=== PATIENT | male | born 1980 | race Caucasian/White ===

== ENCOUNTER 2023-09-24 02:18 | Emergency (ER) | payer BC, SELFPAY ==
[2023-09-24 02:20] VITALS: BP 142/90
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
[2023-09-24] MEDS: KEFLEX 500 MG PO (04:00)
[2023-09-24] MEDS: ADACEL 0.5 ML IM (04:04)
== END 2023-09-24 04:27 | disposition home or self-care (01) ==
LOC: EMR 02:18
PROVIDERS: EMERGENCY PHYSICIAN Student in an Organized Health Care Education/Training Program
DX: T24.001A Burn of unspecified degree of unspecified site of right lower limb, except ankle and foot, initial encounter (principal); S81.831A Puncture wound without foreign body, right lower leg, initial encounter; W39.XXXA Discharge of firework, initial encounter; F17.200 Nicotine dependence, unspecified, uncomplicated; Z23 Encounter for immunization; R03.0 Elevated blood-pressure reading, without diagnosis of hypertension
CPT/HCPCS: 99283; 90471; 73590; 90715

== ENCOUNTER 2023-09-26 09:50 | Emergency (ER) | payer BC, SELFPAY ==
[2023-09-26 10:02] VITALS: BP 121/78
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
== END 2023-09-26 12:14 | disposition home or self-care (01) ==
LOC: EMR 09:50
PROVIDERS: EMERGENCY PHYSICIAN Emergency Medicine; FAMILY PHYSICIAN Family Medicine
DX: S81.801A Unspecified open wound, right lower leg, initial encounter (principal); W39.XXXA Discharge of firework, initial encounter; F17.200 Nicotine dependence, unspecified, uncomplicated
CPT/HCPCS: 99282

== ENCOUNTER → 2023-09-30 07:53 | Outpatient (REF) | payer BC, SELFPAY | LOC: WOUND 07:53 | PROVIDERS: ATTENDING PHYSICIAN Surgery; FAMILY PHYSICIAN Physician Assistant Medical | DX: L97.213 Non-pressure chronic ulcer of right calf with necrosis of muscle (principal); F17.200 Nicotine dependence, unspecified, uncomplicated | CPT/HCPCS: 11042; 11043; 99203 ==

== ENCOUNTER → 2023-10-07 10:27 | Outpatient (REF) | payer BC, SELFPAY | LOC: WOUND 10:27 | PROVIDERS: ATTENDING PHYSICIAN Surgery | DX: L97.213 Non-pressure chronic ulcer of right calf with necrosis of muscle (principal) | CPT/HCPCS: 11042 ==

== ENCOUNTER → 2023-10-12 09:30 | Outpatient (REF) | payer BC, SELFPAY | LOC: WOUND 09:30 | PROVIDERS: ATTENDING PHYSICIAN Surgery | DX: L97.213 Non-pressure chronic ulcer of right calf with necrosis of muscle (principal); F17.200 Nicotine dependence, unspecified, uncomplicated | CPT/HCPCS: 11042 ==

== ENCOUNTER → 2023-10-19 13:32 | Outpatient (REF) | payer BC, SELFPAY | LOC: WOUND 13:32 | PROVIDERS: ATTENDING PHYSICIAN Surgery | DX: L97.213 Non-pressure chronic ulcer of right calf with necrosis of muscle (principal); F17.200 Nicotine dependence, unspecified, uncomplicated | CPT/HCPCS: 11042 ==

== ENCOUNTER → 2023-10-26 12:58 | Outpatient (REF) | payer BC, SELFPAY | LOC: WOUND 12:58 | PROVIDERS: ATTENDING PHYSICIAN Surgery | DX: L97.213 Non-pressure chronic ulcer of right calf with necrosis of muscle (principal); F17.200 Nicotine dependence, unspecified, uncomplicated | CPT/HCPCS: 11042 ==

== ENCOUNTER → 2023-11-02 09:37 | Outpatient (REF) | payer BC, SELFPAY | LOC: WOUND 09:37 | PROVIDERS: ATTENDING PHYSICIAN Surgery | DX: L97.213 Non-pressure chronic ulcer of right calf with necrosis of muscle (principal); F17.200 Nicotine dependence, unspecified, uncomplicated | CPT/HCPCS: 99212 ==

== ENCOUNTER → 2023-12-15 15:11 | Outpatient (REF) | payer BC, SELFPAY | LOC: HWRAD 15:11 | DX: M79.89 Other specified soft tissue disorders (principal) | CPT/HCPCS: 73630 ==